=== PATIENT | male | born 1940 | race Caucasian/White ===

== ENCOUNTER 2021-02-08 05:56 | Inpatient (IN) | payer MEDICARE, OTHER ==
[2021-02-08] VITALS (8 sets, daily range): BP systolic 101–108; BP diastolic 57–62
[~2021-02-08] VITALS: Ht 175.3 cm; Wt 59.4 kg
[2021-02-08 06:56] LABS: BASOPHILS % 0.1 % (0.0-1.0); HEMATOCRIT 37.3 % (38.2-49.6); HEMOGLOBIN 12.1 g/dL (14.0-18.0); LYMPHOCYTES # (AUTO) 1.3 (1.0-3.2); LYMPHOCYTES % 16.4 % (18.0-39.1); MEAN CORPUSCULAR HEMOGLOBIN 31.5 pg (28-32); MEAN CORPUSCULAR HGB CONC 32.4 g/dL (31-35); MEAN CORPUSCULAR VOLUME 97.1 fL (81-99); MONOCYTES # (AUTO) 0.8 (0.2-0.8); MONOCYTES % 9.8 % (4.4-11.3); NEUTROPHILS # (AUTO) 5.6 (2.1-6.9); NEUTROPHILS % 73.4 % (38.7-80.0); PLATELET COUNT 123 x10e3/uL (140-360); RED BLOOD COUNT 3.84 x10e6/uL (4.3-5.7); RED CELL DISTRIBUTION WIDTH 13.3 % (11.7-14.4)
[2021-02-08 07:06] LABS: AMPHETAMINES SCREEN,URINE POSITIVE (NEGATIVE); PHENCYCLIDINE SCREEN,URINE NEGATIVE (NEGATIVE)
[2021-02-08 07:07] LABS: BENZODIAZEPINES SCREEN,URINE NEGATIVE (NEGATIVE)
[2021-02-08 07:09] LABS: CLARITY,URINE CLOUDY (CLEAR); COLOR,URINE YELLOW (YELLOW); KETONES,URINE NEGATIVE (NEGATIVE); LEUKOCYTE ESTERASE ,URINE NEGATIVE (NEGATIVE); NITRITE,URINE NEGATIVE (NEGATIVE); PROTEIN,URINE DIPSTICK 2+ (NEGATIVE); URINE UROBILINOGEN 0.2 mg/dL (0.2 - 1)
[2021-02-08 07:12] LABS: ALBUMIN 3.9 g/dL (3.5-5.0); ANION GAP 16.3 mmol/L (8-16); CALCIUM 9.1 mg/dL (8.4-10.2); CREATININE, SERUM 2.61 mg/dL (0.72-1.25); POTASSIUM 4.3 mmol/L (3.5-5.1)
[2021-02-08 07:13] LABS: BACTERIA,URINE MODERATE /HPF; EPITHELIAL CELLS,URINE FEW /LPF; RBC,URINE >50 /HPF (0-5); WBC,URINE (MAN) 0-5 /HPF (0-5)
[2021-02-08 07:14] LABS: AMORPHOUS SEDIMENT,URINE MANY (FEW)
[2021-02-08 07:18] LABS: CREATINE KINASE MB 8.1 ng/mL (0-5.0)
[2021-02-08] MEDS ORDERED: SODIUM CHLORIDE 0.9% 1000ML 1,000 ML IV STA (07:19)
[2021-02-08] MEDS ORDERED: FENTANYL CITRATE/PF 100MCG/2 ML INJ IV ONE (08:00)
[2021-02-08] MEDS ORDERED: LIDOCAINE JELLY 2% 10ML URO-JET TOP ONE (08:00)
[2021-02-08] MEDS: SODIUM CHLORIDE 0.9% 1000ML 1,000 ML IV SCH ×2 (08:36→16:20)
[2021-02-08] MEDS ORDERED: ATORVASTATIN CA20 MG PO (09:53)
[2021-02-08] MEDS ORDERED: LISINOPRIL5 MG PO (09:53)
[2021-02-08] MEDS ORDERED: ASPIRIN81 MG PO (09:55)
[2021-02-08] MEDS ORDERED: VITAMIN D3 COM1 EACH PO (09:55)
[2021-02-08] MEDS ORDERED: FISH OIL 1,0001 EAC2 PO (09:59)
[2021-02-08] MEDS ORDERED: LOTEMAX5 ML OU (09:59)
[2021-02-08] MEDS ORDERED: METOPROLOL SUCC25 MG PO (09:59)
[2021-02-08] MEDS: ATORVASTATIN 20 MG TAB PO SCH (20:55)
[2021-02-09] VITALS (8 sets, daily range): BP systolic 112–138; BP diastolic 63–72
[2021-02-09] MEDS: SODIUM CHLORIDE 0.9% 1000ML 1,000 ML IV SCH ×4 (00:16→20:26)
[2021-02-09] MEDS: METOPROLOL SUCCINATE 25 MG TAB XL PO SCH ×2 (00:17→20:26)
[2021-02-09 06:25] LABS: ALBUMIN 2.9 g/dL (3.5-5.0); ANION GAP 8.2 mmol/L (8-16); CALCIUM 7.7 mg/dL (8.4-10.2); CREATININE, SERUM 1.11 mg/dL (0.72-1.25); POTASSIUM 4.2 mmol/L (3.5-5.1)
[2021-02-09] MEDS: ASPIRIN 81 MG CHEW TAB PO SCH (09:41)
[2021-02-09 10:31] LABS: BASOPHILS % 0.2 % (0.0-1.0); EOSINOPHILS # (AUTO) 0.1 (0.0-0.4); EOSINOPHILS % 1.3 % (0.0-6.0); HEMATOCRIT 32.6 % (38.2-49.6); HEMOGLOBIN 10.4 g/dL (14.0-18.0); LYMPHOCYTES # (AUTO) 1.2 (1.0-3.2); LYMPHOCYTES % 22.5 % (18.0-39.1); MEAN CORPUSCULAR HEMOGLOBIN 31.5 pg (28-32); MEAN CORPUSCULAR HGB CONC 31.9 g/dL (31-35); MEAN CORPUSCULAR VOLUME 98.8 fL (81-99); MONOCYTES # (AUTO) 0.7 (0.2-0.8); MONOCYTES % 13.8 % (4.4-11.3); NEUTROPHILS # (AUTO) 3.2 (2.1-6.9); NEUTROPHILS % 61.8 % (38.7-80.0); RED CELL DISTRIBUTION WIDTH 13.3 % (11.7-14.4)
[2021-02-09 10:40] LABS: PLATELET COUNT 77 x10e3/uL (140-360)
[2021-02-09 11:28] LABS: CREATINE KINASE MB 4.5 ng/mL (0-5.0)
[2021-02-09] MEDS ORDERED: SODIUM CHLORIDE 0.9% 50ML 0 ML ONE (14:12)
[2021-02-09] MEDS ORDERED: IOPAMIDOL 370 MG/ML 200 ML INFUS..BTL INJ ONE (14:12)
[2021-02-09] MEDS ORDERED: SODIUM CHLORIDE 0.9% 250ML 250 ML ONE (14:25)
[2021-02-09] MEDS: ATORVASTATIN 20 MG TAB PO SCH (20:25)
[2021-02-09] MEDS ORDERED: TAMSULOSIN HCL 0.4 MG CAP PO SCH (21:00)
[2021-02-10] VITALS: BP 122/67
[2021-02-10 03:48] VITALS: BP 125/63
[2021-02-10 07:58] VITALS: BP 126/65
[2021-02-10] MEDS: SODIUM CHLORIDE 0.9% 1000ML 1,000 ML IV SCH (08:00)
[2021-02-10] MEDS: ASPIRIN 81 MG CHEW TAB PO SCH (09:04)
[2021-02-10 09:09] VITALS: BP 126/65
== END 2021-02-10 10:50 | disposition home or self-care (01) | DRG 683 ==
LOC: ER 06:10 → ERHOLD 07:51 → MED/SURG3 08:46 → MED/SURG 02-09 00:04
PROVIDERS: ADMIT Family Medicine; ATTEND Family Medicine
DX: N17.9 Acute kidney failure, unspecified (principal); N39.0 Urinary tract infection, site not specified; E87.2 Acidosis; K76.6 Portal hypertension; N13.8 Other obstructive and reflux uropathy; N40.1 Benign prostatic hyperplasia with lower urinary tract symptoms; R33.9 Retention of urine, unspecified; Z20.822 Contact with and (suspected) exposure to COVID-19; R33.8 Other retention of urine; D69.6 Thrombocytopenia, unspecified; E83.51 Hypocalcemia; E86.0 Dehydration; I10 Essential (primary) hypertension; J84.10 Pulmonary fibrosis, unspecified; F17.210 Nicotine dependence, cigarettes, uncomplicated; K74.60 Unspecified cirrhosis of liver; F15.10 Other stimulant abuse, uncomplicated; R16.1 Splenomegaly, not elsewhere classified
CPT/HCPCS: 36415; 51700; 71045; 74178; 80053; 80307; 81001; 82550; 82553; 84484; 85025; 87086; 93005; 93306; 96360; 99284; J7030; J7050; Q9967; U0002

== ENCOUNTER 2021-03-09 02:45 | Emergency (ER) | payer MEDICARE ==
[~2021-03-09] VITALS: Ht 175.3 cm; Wt 59.4 kg
[~2021-03-09 02:45] MED LIST: ASPIRIN81 MG PO; ATORVASTATIN CA20 MG PO; FISH OIL 1,0001 EAC2 PO; LISINOPRIL5 MG PO; LOTEMAX5 ML OU; METOPROLOL SUCC25 MG PO; VITAMIN D3 COM1 EACH PO
[2021-03-09] MEDS ORDERED: SODIUM CHLORIDE 0.9% 1000ML 1,000 ML IV STA (02:58)
[2021-03-09] MEDS ORDERED: LIDOCAINE JELLY 2% 10ML URO-JET ONE (03:31)
[2021-03-09 03:37] LABS: BASOPHILS % 0.5 % (0.0-1.0); EOSINOPHILS # (AUTO) 0.1 (0.0-0.4); EOSINOPHILS % 1.9 % (0.0-6.0); HEMATOCRIT 32.5 % (38.2-49.6); HEMOGLOBIN 10.5 g/dL (14.0-18.0); LYMPHOCYTES % 26.1 % (18.0-39.1); MEAN CORPUSCULAR HEMOGLOBIN 31.4 pg (28-32); MEAN CORPUSCULAR HGB CONC 32.3 g/dL (31-35); MEAN CORPUSCULAR VOLUME 97.3 fL (81-99); MONOCYTES # (AUTO) 0.6 (0.2-0.8); MONOCYTES % 16.2 % (4.4-11.3); PLATELET COUNT 112 x10e3/uL (140-360); RED BLOOD COUNT 3.34 x10e6/uL (4.3-5.7); RED CELL DISTRIBUTION WIDTH 13.3 % (11.7-14.4)
[2021-03-09 03:39] LABS: CLARITY,URINE CLEAR (CLEAR); COLOR,URINE YELLOW (YELLOW); KETONES,URINE NEGATIVE (NEGATIVE); LEUKOCYTE ESTERASE ,URINE NEGATIVE (NEGATIVE); NITRITE,URINE NEGATIVE (NEGATIVE); PROTEIN,URINE DIPSTICK NEGATIVE (NEGATIVE); URINE UROBILINOGEN 1 mg/dL (0.2 - 1)
[2021-03-09 03:40] LABS: AMPHETAMINES SCREEN,URINE POSITIVE (NEGATIVE); BENZODIAZEPINES SCREEN,URINE POSITIVE (NEGATIVE); PHENCYCLIDINE SCREEN,URINE NEGATIVE (NEGATIVE)
[2021-03-09 03:43] LABS: INR 0.99; PARTIAL THROMBOPLASTIN TIME 28.9 seconds (23.8-35.5); PROTHROMBIN TIME 13.9 seconds (11.9-14.5)
[2021-03-09 03:45] LABS: BACTERIA,URINE FEW /HPF; EPITHELIAL CELLS,URINE FEW /LPF; RBC,URINE 0-5 /HPF (0-5); WBC,URINE (MAN) 0-5 /HPF (0-5)
[2021-03-09 03:52] LABS: ALBUMIN 3.5 g/dL (3.5-5.0); ALBUMIN/GLOBULIN RATIO 0.9 (0.8-2.0); ANION GAP 14.7 mmol/L (8-16); CREATININE, SERUM 1.47 mg/dL (0.72-1.25); POTASSIUM 4.7 mmol/L (3.5-5.1)
[2021-03-09 03:55] LABS: SALICYLATE < 5.0 mg/dL (0-30)
[2021-03-09 03:59] LABS: CREATINE KINASE MB 6.4 ng/mL (0-5.0)
[2021-03-09] MEDS ORDERED: BROMFED DM COU118 ML PO (04:49)
[2021-03-09] MEDS ORDERED: AZITHROMYCIN250 MG PO (04:49)
[2021-03-09 05:15] VITALS: BP 112/64
== END 2021-03-09 05:00 | disposition home or self-care (01) ==
LOC: ER 02:51
DX: F13.10 Sedative, hypnotic or anxiolytic abuse, uncomplicated (principal); F22 Delusional disorders; F15.10 Other stimulant abuse, uncomplicated; E86.0 Dehydration; I11.0 Hypertensive heart disease with heart failure; I50.9 Heart failure, unspecified; E78.5 Hyperlipidemia, unspecified; F17.200 Nicotine dependence, unspecified, uncomplicated; Z79.82 Long term (current) use of aspirin
CPT/HCPCS: 36415; 70450; 71045; 80053; 80307; 80320; 80329; 81001; 82550; 82553; 83880; 84484; 85025; 85610; 85730; 99284

== ENCOUNTER 2021-08-28 10:16 | Emergency (ER) | payer MEDICARE, OTHER ==
[~2021-08-28] VITALS: Ht 175.3 cm; Wt 59.4 kg
[~2021-08-28 10:16] MED LIST changes: +AZITHROMYCIN250 MG PO; +BROMFED DM COU118 ML PO
[2021-08-28] MEDS ORDERED: HYDROCODONE/APAP 7.5MG-325MG 1 EA TAB PO STA (11:29)
[2021-08-28] MEDS ORDERED: LIDOCAINE 4% PATCH TP SCH (11:30)
== END 2021-08-28 12:17 | disposition home or self-care (01) ==
LOC: ER 10:23
DX: S22.41XA Multiple fractures of ribs, right side, initial encounter for closed fracture (principal); M54.6 Pain in thoracic spine; W18.39XA Other fall on same level, initial encounter; Y93.89 Activity, other specified; Y92.89 Other specified places as the place of occurrence of the external cause; I10 Essential (primary) hypertension; I50.9 Heart failure, unspecified; E78.5 Hyperlipidemia, unspecified
CPT/HCPCS: 71101; 72072; 94799; 99284